=== PATIENT | female | born 1935 ===

== ENCOUNTER 2018-04-02 09:42 | Emergency (ER) | payer OTHER ==
[~2018-04-02] VITALS: Ht 157.5 cm; Wt 63.5 kg
[2018-04-02] MEDS ORDERED: SYNTHROID50 MCG PO (10:28)
[2018-04-02] MEDS ORDERED: SINEMET 25-1001 EACH PO (10:29)
[2018-04-02] MEDS ORDERED: TOPROL XL25 M1 PO (10:29)
[2018-04-02] MEDS ORDERED: ZOLOFT25 MG PO (10:29)
[2018-04-02] MEDS ORDERED: COZAAR25 MG PO (10:30)
== END 2018-04-02 14:11 | disposition home or self-care (01) ==
LOC: ER 09:42
DX: R30.0 Dysuria (principal); N39.0 Urinary tract infection, site not specified; B96.29 Other Escherichia coli [E. coli] as the cause of diseases classified elsewhere